=== PATIENT | female | born 1965 | race American Indian/Alaskan Native ===

== ENCOUNTER 2016-06-22 07:50 | Outpatient (CLI) | payer BC ==
--- NOTE | 2016-06-22 09:57 | Fluoroscopy Report ---
ESOPHAGRAM History: Gastroesophageal reflux disease. Findings: Deglutition is normal. There is no evidence for aspiration. The cervical and thoracic esophagus are normal caliber and mucosal pattern throughout. Hypopharyngeal structures are unremarkable. No evidence for stricture, ring, web or mass. No hiatal hernia. Poor motility with occasional tertiary contractions witnessed throughout this exam. 1 or 2 episodes of gastroesophageal reflux to the mid esophagus were also identified. Impression: Mild gastroesophageal reflux disease. Mild esophageal dysmotility with occasional spasm.
== END 2016-06-22 07:51 | disposition home or self-care (01) ==
LOC: FLUORO 07:50
PROVIDERS: ATTEND Otolaryngology
DX: K21.9 Gastro-esophageal reflux disease without esophagitis (principal)
CPT/HCPCS: 74220